=== PATIENT | male | born 1960 | race Caucasian/White ===

== ENCOUNTER 2017-11-08 14:57 | Inpatient (IN) | payer BC, OTHER ==
[~2017-11-08 14:57] MED LIST: HEPARIN 5,000 UNIT/0.5 ML VIAL
[2017-11-08] MEDS: HEPARIN 1000 UNITS/ML 10 ML INJ IV (15:00)
[2017-11-08 15:05] LABS: ADD MAN DIFF? NO
[2017-11-08 15:07] LABS: BASOPHILS % 0.4 % (0.0-2.0); EOSINOPHILS # 0.1 10^3/ul (0.0-0.5); EOSINOPHILS % 0.6 % (0.0-7.0); HEMOGLOBIN 14.1 g/dl (14.0-18.0); LYMPHOCYTES # 1.8 10^3/ul (0.8-2.9); LYMPHOCYTES % 18.1 % (15.0-51.0); MEAN CORPUSCULAR HEMOGLOBIN 27.1 pg (29.0-33.0); MEAN CORPUSCULAR HGB CONC 32.8 g/dl (32.0-37.0); MEAN CORPUSCULAR VOLUME 82.5 fl (82.0-101.0); MEAN PLATELET VOLUME 12.8 fl (7.4-10.4); MONOCYTE # 0.6 10^3/ul (0.3-0.9); MONOCYTES % 5.9 % (0.0-11.0); NEUTROPHIL # 7.2 10^3/ul (1.6-7.5); NEUTROPHILS % 74.7 % (39.0-77.0); PLATELET COUNT 104 10^3/UL (140-415); RED BLOOD COUNT 5.21 10^6/ul (4.70-6.10)
[2017-11-08 15:07] LABS: WHITE BLOOD COUNT 9.7 10^3/ul (4.8-10.8)
[2017-11-08 15:20] LABS: ANION GAP 13 (8-16); BLOOD UREA NITROGEN 10 mg/dl (7-20); CALCIUM 8.2 mg/dl (8.4-10.2); CARBON DIOXIDE 24 mmol/L (21-31); CHLORIDE 111 mmol/L (97-110); CREATININE 0.73 mg/dl (0.61-1.24); GLUCOSE 106 mg/dl (70-220); POTASSIUM 4.1 mmol/L (3.5-5.1); SODIUM 144 mmol/L (135-144)
[2017-11-08 15:32] LABS: B-TYPE NATRIURETIC PEPTIDE 428 PG/ML (0-125)
[2017-11-08] MEDS ORDERED: MIDAZOLAM 1 MG/ML 2 ML INJ ×2 (15:34→15:43)
[2017-11-08] MEDS ORDERED: FENTAnyl 50 MCG/ML VIAL (15:35)
[2017-11-08] MEDS ORDERED: VERAPAMIL 5 MG INJ (15:40)
[2017-11-08] MEDS ORDERED: SOD CHLORIDE 0.9% 500 ML (16:15)
[2017-11-08] MEDS ORDERED: IODIXANOL LOCM 100 ML BTL ×2 (16:15→16:36)
[2017-11-08] MEDS ORDERED: IOHEXOL 350MG/ML 50 ML BTL (16:15)
[2017-11-08] MEDS ORDERED: NITROGLYCERIN (IC) 100 MCG/ML INJ (16:15)
[2017-11-08] MEDS ORDERED: TICAGRELOR 90 MG TABLET (16:23)
[2017-11-08] MEDS ORDERED: NACL 0.9% 3 ML SYG IV (17:00)
[2017-11-08] MEDS: SOD CHLORIDE 0.9% 1,000 ML IV (17:59)
[2017-11-08] MEDS: NICOTINE (21 MG/24 HR) PATCH TRANSDERM (20:00)
[2017-11-08] MEDS: TAMSULOSIN (SR) 0.4 MG CAP PO (20:10)
[2017-11-08] MEDS: ATORVASTATIN 80 MG TAB PO (20:10)
[2017-11-08] MEDS: MAGNESIUM SULFATE 2 GM/50 ML 50 ML IVPB (20:10)
[2017-11-08] MEDS: TICAGRELOR 90 MG TABLET PO (20:15)
[2017-11-09 01:45] LABS: CREATINE KINASE 1452 IU/L (23-200)
[2017-11-09 01:46] LABS: ANION GAP 13 (8-16); BLOOD UREA NITROGEN 11 mg/dl (7-20); CALCIUM 8.5 mg/dl (8.4-10.2); CARBON DIOXIDE 23 mmol/L (21-31); CHLORIDE 110 mmol/L (97-110); CREATININE 0.78 mg/dl (0.61-1.24); GLUCOSE 113 mg/dl (70-220); POTASSIUM 4.4 mmol/L (3.5-5.1); SODIUM 142 mmol/L (135-144)
[2017-11-09 01:56] LABS: CK INDEX 8.4
[2017-11-09] MEDS ORDERED: ACETAMINOPHEN 325 MG TAB PO (03:00)
[2017-11-09 05:13] LABS: MAGNESIUM 2.4 mg/dl (1.7-2.5)
[2017-11-09 05:36] LABS: ADD MAN DIFF? NO
[2017-11-09 05:37] LABS: ABNORMAL IP MESSAGE 1; BASOPHILS % 0.5 % (0.0-2.0); EOSINOPHILS % 0.4 % (0.0-7.0); HEMATOCRIT 40.1 % (42.0-52.0); HEMOGLOBIN 13.3 g/dl (14.0-18.0); LYMPHOCYTES # 1.5 10^3/ul (0.8-2.9); MEAN CORPUSCULAR HEMOGLOBIN 27.3 pg (29.0-33.0); MEAN CORPUSCULAR HGB CONC 33.2 g/dl (32.0-37.0); MEAN CORPUSCULAR VOLUME 82.3 fl (82.0-101.0); MEAN PLATELET VOLUME 12.6 fl (7.4-10.4); MONOCYTE # 0.6 10^3/ul (0.3-0.9); MONOCYTES % 7.5 % (0.0-11.0); NEUTROPHIL # 6.2 10^3/ul (1.6-7.5); NEUTROPHILS % 73.1 % (39.0-77.0); PLATELET COUNT 92 10^3/UL (140-415); POSITIVE DIFF @See below; RED BLOOD COUNT 4.87 10^6/ul (4.70-6.10)
[2017-11-09 05:37] LABS: WHITE BLOOD COUNT 8.4 10^3/ul (4.8-10.8)
[2017-11-09 05:50] LABS: CREATINE KINASE 1349 IU/L (23-200)
[2017-11-09 06:03] LABS: CK INDEX 7.7
[2017-11-09 06:06] LABS: ALANINE AMINOTRANSFERASE 47 IU/L (13-69); ALBUMIN 3.2 g/dl (3.3-4.9); ALBUMIN/GLOBULIN RATIO 1.23; ALKALINE PHOSPHATASE 65 IU/L (42-121); ANION GAP 13 (8-16); ASPARTATE AMINO TRANSFERASE 165 IU/L (15-46); BILIRUBIN,INDIRECT 0.4 mg/dl (0-1.1); BILIRUBIN,TOTAL 0.4 mg/dl (0.2-1.3); BLOOD UREA NITROGEN 11 mg/dl (7-20); CALCIUM 8.4 mg/dl (8.4-10.2); CARBON DIOXIDE 23 mmol/L (21-31); CHLORIDE 111 mmol/L (97-110); CREATININE 0.68 mg/dl (0.61-1.24); GLUCOSE 103 mg/dl (70-220); POTASSIUM 4.4 mmol/L (3.5-5.1); SODIUM 143 mmol/L (135-144); TOTAL PROTEIN 5.8 g/dl (6.1-8.1)
[2017-11-09 06:22] LABS: CHOLESTEROL 102 mg/dl (100-200)
[2017-11-09 06:22] LABS: CHOL/HDL RATIO 2.8 RATIO; HDL CHOLESTEROL 36 mg/dl (28-71); LDL CHOLESTEROL,CALCULATED 50 mg/dl; TRIGLYCERIDES 81 mg/dl (0-149)
[2017-11-09] MEDS: ASPIRIN (EC) 81 MG TAB PO (08:12)
[2017-11-09] MEDS: NICOTINE (21 MG/24 HR) PATCH TRANSDERM (08:13)
[2017-11-09] MEDS: TICAGRELOR 90 MG TABLET PO (08:13)
[2017-11-09] MEDS ORDERED: ASPIRIN 81 MG TAB PO (09:00)
== END 2017-11-09 13:15 | disposition home or self-care (01) | DRG 247 ==
LOC: E/R 14:57 → ICU 16:27
PROC: 027136Z Dilation of Coronary Artery, Two Arteries with Three Drug-eluting Intraluminal Devices, Percutaneous Approach (ICD-10-PCS; principal; 2017-11-08 15:00)
PROC: 4A023N7 Measurement of Cardiac Sampling and Pressure, Left Heart, Percutaneous Approach (ICD-10-PCS; 2017-11-08 15:00)
PROC: B2011ZZ Plain Radiography of Multiple Coronary Arteries using Low Osmolar Contrast (ICD-10-PCS; 2017-11-08 15:00)
PROC: B2051ZZ Plain Radiography of Left Heart using Low Osmolar Contrast (ICD-10-PCS; 2017-11-08 15:00)
DX: I21.19 ST elevation (STEMI) myocardial infarction involving other coronary artery of inferior wall (principal); I10 Essential (primary) hypertension; Z95.5 Presence of coronary angioplasty implant and graft; E78.00 Pure hypercholesterolemia, unspecified; Z72.0 Tobacco use; N40.0 Benign prostatic hyperplasia without lower urinary tract symptoms; Z79.02 Long term (current) use of antithrombotics/antiplatelets; Z79.82 Long term (current) use of aspirin
CPT/HCPCS: 36415; 71045; 80048; 80053; 80061; 82550; 82553; 83735; 83880; 84484; 85025; 87081; 93005; 93306; 93458; 96374; 99291-25